=== PATIENT | male | born 1935 | race Caucasian/White ===

== ENCOUNTER 2017-06-28 01:42 | Observation (INO) | payer MEDICARE, OTHER ==
[2017-06-28] MEDS: LORAZEPAM 2 MG INJ IV (02:35)
[2017-06-28] MEDS: morphine 4 MG/ML VIAL IV (02:35)
[2017-06-28] MEDS: ONDANSETRON 4 MG INJ IV (02:35)
[2017-06-28 02:48] LABS: ADD MAN DIFF? NO
[2017-06-28 02:54] LABS: ABNORMAL IP MESSAGE 1; BASOPHIL # 0.1 10^3/ul (0.0-0.1); BASOPHILS % 0.2 % (0.0-2.0); HEMATOCRIT 28.2 % (42.0-52.0); HEMOGLOBIN 9.4 g/dl (14.0-18.0); LYMPHOCYTES # 1.1 10^3/ul (0.8-2.9); LYMPHOCYTES % 5.3 % (15.0-51.0); MEAN CORPUSCULAR HGB CONC 33.3 g/dl (32.0-37.0); MEAN CORPUSCULAR VOLUME 95.9 fl (82.0-101.0); MONOCYTE # 0.2 10^3/ul (0.3-0.9); MONOCYTES % 0.8 % (0.0-11.0); NEUTROPHIL # 19.8 10^3/ul (1.6-7.5); NUCLEATED RED BLOOD CELLS% 0.1 /100WBC (0.0-0.0); PLATELET COUNT 376 10^3/UL (140-415); POSITIVE DIFF @See below; RED BLOOD COUNT 2.94 10^6/ul (4.70-6.10); RED CELL DISTRIBUTION WIDTH 23.9 % (11.5-14.5)
[2017-06-28 02:54] LABS: WHITE BLOOD COUNT 21.3 10^3/ul (4.8-10.8)
[2017-06-28 03:14] LABS: ANION GAP 25 (8-16); BLOOD UREA NITROGEN 99 mg/dl (7-20); CALCIUM 7.8 mg/dl (8.4-10.2); CARBON DIOXIDE 19 mmol/L (21-31); CHLORIDE 117 mmol/L (97-110); CREATININE 2.34 mg/dl (0.61-1.24); GLUCOSE 330 mg/dl (70-220); SODIUM 158 mmol/L (135-144)
[2017-06-28 03:15] LABS: NEUTROPHILS % 92.8 % (39.0-77.0)
[2017-06-28 03:18] LABS: POTASSIUM 2.6 mmol/L (3.5-5.1)
[2017-06-28] MEDS ORDERED: ACETAMINOPHEN 325 MG TAB PO (04:00)
[2017-06-28] MEDS ORDERED: ONDANSETRON 4 MG INJ IV (04:00)
[2017-06-28] MEDS: DIAZEPAM 5 MG/ML SYG IV (04:37)
[2017-06-28] MEDS ORDERED: NACL 0.9% 3 ML SYG IV (05:00)
[2017-06-28] MEDS ORDERED: morphine 2 MG INJ IV (05:00)
== END 2017-06-28 12:37 ==
LOC: E/R 01:42 → MS2 03:50
DX: E87.0 Hyperosmolality and hypernatremia (principal); C16.9 Malignant neoplasm of stomach, unspecified; G93.40 Encephalopathy, unspecified; N17.9 Acute kidney failure, unspecified; E87.6 Hypokalemia; Z91.81 History of falling; D64.9 Anemia, unspecified; I10 Essential (primary) hypertension; Z99.81 Dependence on supplemental oxygen
CPT/HCPCS: 36415; 80048; 85025; 96374; 96375; 99217; 99285-25